=== PATIENT | male | born 1955 | race Caucasian/White ===

== ENCOUNTER 2020-03-10 15:07 | Inpatient (IN) | payer BC ==
[~2020-03-10] VITALS: Ht 170.2 cm; Wt 73.9 kg
[2020-03-10 15:14] VITALS: BP_SYST 141
[2020-03-10] MEDS ORDERED: FOLIC ACID 1 MG, THIAMINE HCL 100 MG, MAGNESIUM SULFATE 1 GM, MVI 10 ML in NACL 0.9% 1,... IV ONE ×2 (16:00→21:30)
[2020-03-10 16:10] LABS: EOSINOPHILS # (AUTO) 0.2 K/uL (0.0-0.4); HEMOGLOBIN 7.7 g/dL (14.0-18.0); LYMPHOCYTES # (AUTO) 1.6 K/uL (1.0-5.5); MONOCYTES # (AUTO) 0.7 K/uL (0.0-1.0); RED BLOOD CELL COUNT(AUTO) 2.13 MIL/uL (4.2-6.2); WHITE BLOOD COUNT (AUTO) 8.2 K/uL (4.8-10.8)
[2020-03-10 16:15] LABS: ANION GAP 8 (5-15); CALCIUM 7.7 mg/dL (8.4-11.0); CHLORIDE 103 mmol/L (98-107); GLUCOSE 111 mg/dL (70-99); POTASSIUM 3.3 mmol/L (3.5-5.1); SODIUM SERUM 138 mmol/L (136-145); UREA NITROGEN, BLOOD 11 mg/dL (8-21)
[2020-03-10] MEDS ORDERED: LIDOCAINE 1% 10 MG/ML, 20 ML MDV INJ ONE (16:15)
[2020-03-10 16:16] LABS: BASOPHILS % (AUTO) 0.6 % (0.0-2.0); EOSINOPHILS % (AUTO) 2.2 % (0.0-4.0); HEMATOCRIT 22.5 % (36-54); LYMPHOCYTES % (AUTO) 19.9 % (20.5-51.5); MEAN CORPUSCULAR HEMOGLOBIN 36 pg (27-31); MEAN CORPUSCULAR HGB CONC 34 % (32-36); MEAN CORPUSCULAR VOLUME 106 fL (79.0-98.0); NEUTROPHILS # (AUTO) 5.7 K/uL (1.8-7.7); NEUTROPHILS % (AUTO) 69.3 % (40.0-70.0); RED CELL DISTRIBUTION WIDTH 20.1 % (9.0-15.0)
[2020-03-10 16:17] LABS: INR 1.6 (0.80-1.20); PROTHROMBIN TIME 15.6 SECS (9.5-12.5)
[2020-03-10 16:18] LABS: GFR AFRICAN AMERICAN 146 mL/min (>90)
[2020-03-10 16:23] LABS: ALANINE AMINOTRANSFERASE 20 U/L (12-78); ALBUMIN 2.3 g/dL (3.4-4.8); ALCOHOL, BLOOD 312 mg/dL (<10); ASPARTATE AMINOTRANSFERASE 92 U/L (10-37); TOTAL BILIRUBIN 6.2 mg/dL (0.0-1.0)
[2020-03-10 16:27] LABS: ACETAMINOPHEN < 1 ug/mL (1-30)
[2020-03-10] MEDS ORDERED: DIPH-TET-PERTUS Vaccine 0.5 ML VIAL (ADACEL) I.M. ONE (16:45)
[2020-03-10] MEDS ORDERED: THIAMINE HCL 100 MG, MAGNESIUM SULFATE 1 GM in NS 100 ML IV ONE (17:00)
[2020-03-10] MEDS ORDERED: FOLIC ACID 1 MG, MVI 10 ML in NACL 0.9% 1,000 ML IV ONE (17:00)
[2020-03-10] MEDS ORDERED: BACITRACIN 1 GM OINT TP ONE (17:03)
[2020-03-10 17:35] LABS: BILIRUBIN,URINE NEGATIVE (NEGATIVE); BLOOD, URINE 2+ (NEGATIVE); CLARITY/URINE SL CLOUDY (CLEAR); COLOR,URINE YELLOW (YELLOW); GLUCOSE,URINE NEGATIVE (NEGATIVE); KETONES,URINE NEGATIVE (NEGATIVE); LEUKOCYTE ESTERASE ,URINE 1+ (NEGATIVE); NITRITE, URINE NEGATIVE (NEGATIVE); PROTEIN URINE NEGATIVE (NEGATIVE)
[2020-03-10 17:45] LABS: UROBILINOGEN,URINE >=8 (0.2-1.0)
[2020-03-10 17:47] LABS: BACTERIA,URINE MANY /HPF (None Seen); MUCUS,URINE None Seen /LPF (None Seen); RBC,URINE 0-3 /HPF (0-3)
[2020-03-10 17:51] LABS: BARBITURATE, URINE NEGATIVE (NEG <=200); BENZODIAZEPINE, URINE NEGATIVE (NEG <=150); CANNABINOID, URINE NEGATIVE (NEG <=50); COCAINE, URINE NEGATIVE (NEG <=150); METHAMPHETAMINES SCREEN,URINE NEGATIVE (NEG <=500); OPIATE, URINE NEGATIVE (NEG <=100); PHENCYCLIDINE SCREEN,URINE NEGATIVE (NEG <=25); URINE AMPHETAMINE NEGATIVE (NEG <=500); URINE METHADONE NEGATIVE (NEG <=200); URINE OXYCODONE SCREEN NEGATIVE (NEG <=100); URINE PROPOXYPHENE SCREEN NEGATIVE (NEG <=300)
[2020-03-10 17:52] LABS: UR TRICYCLIC ANTIDEPRESSANTS NEGATIVE (NEG <=300)
[2020-03-10] MEDS ORDERED: LORazepam 2 MG/ML VIAL IVP ONE (19:30)
[2020-03-10] MEDS ORDERED: LEVOFLOXACIN 500 MG/D5W 100 ML IV ONE (19:45)
[2020-03-10 21:00] VITALS: BP_SYST 132
[2020-03-10 21:07] VITALS: BP_SYST 117
[2020-03-10 22:00] VITALS: BP_SYST 121
[2020-03-10] MEDS: KCL 20 mEq in D5/0.45NS 1000mL 1,000 ML IV SCH (22:45)
[2020-03-10] MEDS: PANTOPRAZOLE SODIUM 40 MG/VIAL (PROTONIX) IVP SCH (22:45)
[2020-03-10] MEDS: cefTRIAXone 1 GM in D5W 50 ML IV SCH (22:46)
[2020-03-10] MEDS ORDERED: KCL 20 mEq in D5/0.45NS 1000mL 1,000 ML IV ONE (22:48)
[2020-03-10 23:00] VITALS: BP_SYST 117
[2020-03-10] MEDS ORDERED: cefTRIAXone 1 GM IVPB PREMIX 50 ML IV ONE (23:04)
[2020-03-11] VITALS (23 sets, daily range): BP systolic 113–167
[2020-03-11 05:43] LABS: BASOPHILS % (AUTO) 0.7 % (0.0-2.0); EOSINOPHILS # (AUTO) 0.1 K/uL (0.0-0.4); EOSINOPHILS % (AUTO) 1.3 % (0.0-4.0); LYMPHOCYTES % (AUTO) 14.2 % (20.5-51.5); MEAN CORPUSCULAR HEMOGLOBIN 36 pg (27-31); MEAN CORPUSCULAR HGB CONC 34 % (32-36); MEAN CORPUSCULAR VOLUME 107 fL (79.0-98.0); MONOCYTES # (AUTO) 0.5 K/uL (0.0-1.0); MONOCYTES % (AUTO) 7.4 % (1.7-9.3); NEUTROPHILS # (AUTO) 5.3 K/uL (1.8-7.7); NEUTROPHILS % (AUTO) 76.4 % (40.0-70.0); RED CELL DISTRIBUTION WIDTH 20.8 % (9.0-15.0); WHITE BLOOD COUNT (AUTO) 6.9 K/uL (4.8-10.8)
[2020-03-11 05:47] LABS: RED BLOOD CELL COUNT(AUTO) 1.88 MIL/uL (4.2-6.2)
[2020-03-11 05:49] LABS: HEMOGLOBIN 6.8 g/dL (14.0-18.0); PLATELET COUNT (AUTO) 42 K/uL (130-430)
[2020-03-11 05:52] LABS: INR 1.7 (0.80-1.20); PROTHROMBIN TIME 16.8 SECS (9.5-12.5)
[2020-03-11 05:54] LABS: CALCIUM 7.4 mg/dL (8.4-11.0); CREATININE 0.8 mg/dL (0.55-1.30); POTASSIUM 3.4 mmol/L (3.5-5.1); TOTAL BILIRUBIN 5.3 mg/dL (0.0-1.0)
[2020-03-11] MEDS: PANTOPRAZOLE SODIUM 40 MG/VIAL (PROTONIX) IVP SCH ×2 (08:16→20:47)
[2020-03-11] MEDS: ACETAMINOPHEN 325 MG TABLET PO PRN ×2 (09:33→15:35)
[2020-03-11] MEDS: chlordiazePOXIDE HCL 25 MG CAPSULE PO PRN ×2 (09:34→15:35)
[2020-03-11] MEDS: cloNIDine HCL 0.1 MG TABLET PO PRN ×2 (09:40→15:40)
[2020-03-11] MEDS: KCL 20 mEq in D5/0.45NS 1000mL 1,000 ML IV SCH (11:50)
[2020-03-11] MEDS: LORazepam 2 MG/ML VIAL IVP PRN ×2 (13:15→19:15)
[2020-03-11] MEDS ORDERED: FOLIC ACID 1 MG, MVI 10 ML in NACL 0.9% 1,000 ML IV ONE (17:00)
[2020-03-11] MEDS ORDERED: THIAMINE HCL 100 MG, MAGNESIUM SULFATE 1 GM in NS 100 ML IV ONE (17:00)
[2020-03-11] MEDS ORDERED: PHYTONADIONE 10 MG/ML AMP SUBCUT ONE (17:30)
[2020-03-11 20:18] LABS: HEMATOCRIT 25.7 % (36-54); HEMOGLOBIN 8.8 g/dL (14.0-18.0)
[2020-03-11] MEDS: cefTRIAXone 1 GM in D5W 50 ML IV SCH (20:47)
[2020-03-11 23:00] LABS: BILIRUBIN,DIRECT 2.9 mg/dL (0.0-0.3)
[2020-03-12] VITALS (23 sets, daily range): BP systolic 121–169
[2020-03-12] MEDS: KCL 20 mEq in D5/0.45NS 1000mL 1,000 ML IV SCH ×2 (01:31→14:30)
[2020-03-12 05:44] LABS: BASOPHILS % (AUTO) 0.2 % (0.0-2.0); EOSINOPHILS # (AUTO) 0.1 K/uL (0.0-0.4); EOSINOPHILS % (AUTO) 1.8 % (0.0-4.0); HEMATOCRIT 24.8 % (36-54); HEMOGLOBIN 8.6 g/dL (14.0-18.0); LYMPHOCYTES # (AUTO) 0.9 K/uL (1.0-5.5); LYMPHOCYTES % (AUTO) 11.4 % (20.5-51.5); MEAN CORPUSCULAR HEMOGLOBIN 35 pg (27-31); MEAN CORPUSCULAR HGB CONC 35 % (32-36); MEAN CORPUSCULAR VOLUME 102 fL (79.0-98.0); MONOCYTES # (AUTO) 0.5 K/uL (0.0-1.0); NEUTROPHILS # (AUTO) 6.2 K/uL (1.8-7.7); NEUTROPHILS % (AUTO) 80.6 % (40.0-70.0); RED BLOOD CELL COUNT(AUTO) 2.44 MIL/uL (4.2-6.2); RED CELL DISTRIBUTION WIDTH 21.7 % (9.0-15.0); WHITE BLOOD COUNT (AUTO) 7.7 K/uL (4.8-10.8)
[2020-03-12] MEDS: chlordiazePOXIDE HCL 25 MG CAPSULE PO PRN ×2 (05:45→21:22)
[2020-03-12 06:03] LABS: INR 1.8 (0.80-1.20); PROTHROMBIN TIME 17.8 SECS (9.5-12.5)
[2020-03-12 06:04] LABS: PLATELET COUNT (AUTO) 29 K/uL (130-430)
[2020-03-12 06:14] LABS: ALBUMIN 2.2 g/dL (3.4-4.8); CALCIUM 7.7 mg/dL (8.4-11.0); CREATININE 0.81 mg/dL (0.55-1.30); POTASSIUM 3.4 mmol/L (3.5-5.1); TOTAL BILIRUBIN 9.9 mg/dL (0.0-1.0)
[2020-03-12 07:19] LABS: TOTAL IRON BIND. CAPACITY 248 ug/dL (250-450)
[2020-03-12] MEDS ORDERED: PHYTONADIONE 10 MG/ML AMP SUBCUT ONE (08:00)
[2020-03-12] MEDS: PANTOPRAZOLE SODIUM 40 MG/VIAL (PROTONIX) IVP SCH ×2 (08:40→21:21)
[2020-03-12 13:50] LABS: PLATELET COUNT (AUTO) 33 K/uL (130-430)
[2020-03-12] MEDS: cefTRIAXone 1 GM in D5W 50 ML IV SCH (21:22)
[2020-03-12] MEDS: LORazepam 2 MG/ML VIAL IVP PRN (23:10)
[2020-03-13] VITALS (24 sets, daily range): BP systolic 114–149
[2020-03-13] MEDS: KCL 20 mEq in D5/0.45NS 1000mL 1,000 ML IV SCH ×3 (03:50→21:45)
[2020-03-13 05:23] LABS: BASOPHILS # (AUTO) 0.1 K/uL (0.0-0.2); BASOPHILS % (AUTO) 0.6 % (0.0-2.0); EOSINOPHILS # (AUTO) 0.1 K/uL (0.0-0.4); EOSINOPHILS % (AUTO) 1.3 % (0.0-4.0); HEMOGLOBIN 7.4 g/dL (14.0-18.0); LYMPHOCYTES % (AUTO) 11.4 % (20.5-51.5); MEAN CORPUSCULAR HEMOGLOBIN 35 pg (27-31); MEAN CORPUSCULAR HGB CONC 35 % (32-36); MEAN CORPUSCULAR VOLUME 101 fL (79.0-98.0); MONOCYTES # (AUTO) 0.7 K/uL (0.0-1.0); MONOCYTES % (AUTO) 7.8 % (1.7-9.3); NEUTROPHILS # (AUTO) 7.2 K/uL (1.8-7.7); NEUTROPHILS % (AUTO) 78.9 % (40.0-70.0); RED BLOOD CELL COUNT(AUTO) 2.09 MIL/uL (4.2-6.2); RED CELL DISTRIBUTION WIDTH 22.2 % (9.0-15.0); WHITE BLOOD COUNT (AUTO) 9.2 K/uL (4.8-10.8)
[2020-03-13 05:49] LABS: INR 1.7 (0.80-1.20); PROTHROMBIN TIME 17.2 SECS (9.5-12.5)
[2020-03-13 06:16] LABS: HEMATOCRIT 21.1 % (36-54)
[2020-03-13 06:17] LABS: PLATELET COUNT (AUTO) 37 K/uL (130-430)
[2020-03-13 08:06] LABS: FERRITIN 104 ng/mL (30-400); FOLATE (FOLIC ACID) >20.0 ng/mL (>3.0)
[2020-03-13] MEDS: PANTOPRAZOLE SODIUM 40 MG/VIAL (PROTONIX) IVP SCH ×2 (09:52→21:42)
[2020-03-13] MEDS: LORazepam 2 MG/ML VIAL IVP PRN (15:55)
[2020-03-13] MEDS ORDERED: VANCOMYCIN HCL 1 GM/NS PREMIX 250 ML IV ONE (19:30)
[2020-03-13] MEDS: cefTRIAXone 1 GM in D5W 50 ML IV SCH (22:00)
[2020-03-13] MEDS: chlordiazePOXIDE HCL 25 MG CAPSULE PO PRN (22:00)
[2020-03-14] VITALS (25 sets, daily range): BP systolic 123–171
[2020-03-14] MEDS: LORazepam 2 MG/ML VIAL IVP PRN ×2 (02:02→20:03)
[2020-03-14 07:02] LABS: BASOPHILS % (AUTO) 0.6 % (0.0-2.0); EOSINOPHILS # (AUTO) 0.1 K/uL (0.0-0.4); EOSINOPHILS % (AUTO) 1.6 % (0.0-4.0); LYMPHOCYTES # (AUTO) 0.9 K/uL (1.0-5.5); LYMPHOCYTES % (AUTO) 11.4 % (20.5-51.5); MEAN CORPUSCULAR HEMOGLOBIN 36 pg (27-31); MEAN CORPUSCULAR HGB CONC 35 % (32-36); MEAN CORPUSCULAR VOLUME 103 fL (79.0-98.0); MONOCYTES # (AUTO) 0.7 K/uL (0.0-1.0); NEUTROPHILS # (AUTO) 6.3 K/uL (1.8-7.7); NEUTROPHILS % (AUTO) 77.4 % (40.0-70.0); RED CELL DISTRIBUTION WIDTH 22.6 % (9.0-15.0); WHITE BLOOD COUNT (AUTO) 8.2 K/uL (4.8-10.8)
[2020-03-14 07:24] LABS: INR 1.7 (0.80-1.20); PROTHROMBIN TIME 17.2 SECS (9.5-12.5)
[2020-03-14 07:43] LABS: HEMATOCRIT 19.2 % (36-54); HEMOGLOBIN 6.7 g/dL (14.0-18.0); RED BLOOD CELL COUNT(AUTO) 1.87 MIL/uL (4.2-6.2)
[2020-03-14 07:44] LABS: PLATELET COUNT (AUTO) 32 K/uL (130-430)
[2020-03-14] MEDS: VANCOMYCIN HCL 1,000 MG in NS 250 ML IV SCH ×2 (09:01→20:06)
[2020-03-14] MEDS: PANTOPRAZOLE SODIUM 40 MG/VIAL (PROTONIX) IVP SCH ×2 (09:01→20:09)
[2020-03-14] MEDS: KCL 20 mEq in D5/0.45NS 1000mL 1,000 ML IV SCH (17:53)
[2020-03-14] MEDS: cloNIDine HCL 0.1 MG TABLET PO PRN (20:04)
[2020-03-14] MEDS: cefTRIAXone 1 GM in D5W 50 ML IV SCH (22:42)
[2020-03-15] VITALS (16 sets, daily range): BP systolic 115–159
[2020-03-15 07:21] LABS: BASOPHILS # (AUTO) 0.1 K/uL (0.0-0.2); BASOPHILS % (AUTO) 1.2 % (0.0-2.0); EOSINOPHILS # (AUTO) 0.1 K/uL (0.0-0.4); HEMATOCRIT 24.3 % (36-54); HEMOGLOBIN 8.4 g/dL (14.0-18.0); LYMPHOCYTES # (AUTO) 0.8 K/uL (1.0-5.5); LYMPHOCYTES % (AUTO) 11.4 % (20.5-51.5); MEAN CORPUSCULAR HEMOGLOBIN 34 pg (27-31); MEAN CORPUSCULAR HGB CONC 35 % (32-36); MEAN CORPUSCULAR VOLUME 98 fL (79.0-98.0); MONOCYTES # (AUTO) 0.7 K/uL (0.0-1.0); MONOCYTES % (AUTO) 10.7 % (1.7-9.3); NEUTROPHILS # (AUTO) 5.2 K/uL (1.8-7.7); NEUTROPHILS % (AUTO) 74.7 % (40.0-70.0); RED BLOOD CELL COUNT(AUTO) 2.47 MIL/uL (4.2-6.2)
[2020-03-15 07:31] LABS: INR 1.7 (0.80-1.20); PROTHROMBIN TIME 16.8 SECS (9.5-12.5)
[2020-03-15 07:34] LABS: ALBUMIN 2.2 g/dL (3.4-4.8); BILIRUBIN,DIRECT 4.2 mg/dL (0.0-0.3); CALCIUM 7.8 mg/dL (8.4-11.0); CREATININE 0.82 mg/dL (0.55-1.30); POTASSIUM 3.4 mmol/L (3.5-5.1); TOTAL BILIRUBIN 9.3 mg/dL (0.0-1.0)
[2020-03-15] MEDS: VANCOMYCIN HCL 1,000 MG in NS 250 ML IV SCH ×2 (08:19→20:32)
[2020-03-15] MEDS: PANTOPRAZOLE SODIUM 40 MG/VIAL (PROTONIX) IVP SCH ×2 (08:20→20:32)
[2020-03-15 09:01] LABS: PLATELET COUNT (AUTO) 48 K/uL (130-430)
[2020-03-15] MEDS ORDERED: POTASSIUM CHLORIDE 20 MEQ TAB.PRT.SR PO ONE (12:30)
[2020-03-15] MEDS: KCL 20 mEq in D5/0.45NS 1000mL 1,000 ML IV SCH ×2 (12:32→22:24)
[2020-03-15] MEDS: LORazepam 2 MG/ML VIAL IVP PRN ×2 (16:50→22:24)
[2020-03-15] MEDS: ACETAMINOPHEN 325 MG TABLET PO PRN (20:35)
[2020-03-15] MEDS: cefTRIAXone 1 GM in D5W 50 ML IV SCH (22:23)
[2020-03-16 01:38] VITALS: BP_SYST 154
[2020-03-16] MEDS: LORazepam 2 MG/ML VIAL IVP PRN ×4 (02:59→20:52)
[2020-03-16 07:18] LABS: BASOPHILS # (AUTO) 0.1 K/uL (0.0-0.2); BASOPHILS % (AUTO) 0.9 % (0.0-2.0); EOSINOPHILS # (AUTO) 0.2 K/uL (0.0-0.4); HEMATOCRIT 24.7 % (36-54); HEMOGLOBIN 8.6 g/dL (14.0-18.0); LYMPHOCYTES # (AUTO) 0.9 K/uL (1.0-5.5); LYMPHOCYTES % (AUTO) 12.5 % (20.5-51.5); MEAN CORPUSCULAR HEMOGLOBIN 35 pg (27-31); MEAN CORPUSCULAR HGB CONC 35 % (32-36); MEAN CORPUSCULAR VOLUME 99 fL (79.0-98.0); MONOCYTES # (AUTO) 0.9 K/uL (0.0-1.0); MONOCYTES % (AUTO) 11.4 % (1.7-9.3); NEUTROPHILS # (AUTO) 5.5 K/uL (1.8-7.7); NEUTROPHILS % (AUTO) 73.2 % (40.0-70.0); PLATELET COUNT (AUTO) 50 K/uL (130-430); RED BLOOD CELL COUNT(AUTO) 2.49 MIL/uL (4.2-6.2); RED CELL DISTRIBUTION WIDTH 21.8 % (9.0-15.0); WHITE BLOOD COUNT (AUTO) 7.5 K/uL (4.8-10.8)
[2020-03-16 07:42] LABS: INR 1.7 (0.80-1.20); PROTHROMBIN TIME 17.2 SECS (9.5-12.5)
[2020-03-16 07:56] LABS: ALBUMIN 2.4 g/dL (3.4-4.8); CALCIUM 8.2 mg/dL (8.4-11.0); CREATININE 0.75 mg/dL (0.55-1.30); POTASSIUM 3.6 mmol/L (3.5-5.1); TOTAL BILIRUBIN 11.5 mg/dL (0.0-1.0)
[2020-03-16 08:00] VITALS: BP_SYST 126
[2020-03-16] MEDS: PANTOPRAZOLE SODIUM 40 MG/VIAL (PROTONIX) IVP SCH ×2 (09:42→20:50)
[2020-03-16] MEDS: VANCOMYCIN HCL 1,000 MG in NS 250 ML IV SCH (09:43)
[2020-03-16 12:23] VITALS: BP_SYST 134
[2020-03-16 16:56] VITALS: BP_SYST 140
[2020-03-16] MEDS: KCL 20 mEq in D5/0.45NS 1000mL 1,000 ML IV SCH ×2 (17:40→18:48)
[2020-03-16 19:45] VITALS: BP_SYST 136
[2020-03-16] MEDS: VANCOMYCIN HCL 1,250 MG in NS 250 ML IV SCH (20:51)
[2020-03-16] MEDS: cefTRIAXone 1 GM in D5W 50 ML IV SCH (21:03)
[2020-03-17] VITALS: BP_SYST 124
[2020-03-17] MEDS: KCL 20 mEq in D5/0.45NS 1000mL 1,000 ML IV SCH ×2 (01:38→14:30)
[2020-03-17 06:18] LABS: EOSINOPHILS # (AUTO) 0.2 K/uL (0.0-0.4); HEMATOCRIT 23.5 % (36-54); HEMOGLOBIN 8.1 g/dL (14.0-18.0); MEAN CORPUSCULAR HEMOGLOBIN 34 pg (27-31); MEAN CORPUSCULAR HGB CONC 35 % (32-36); MEAN CORPUSCULAR VOLUME 100 fL (79.0-98.0); RED BLOOD CELL COUNT(AUTO) 2.37 MIL/uL (4.2-6.2); RED CELL DISTRIBUTION WIDTH 21.8 % (9.0-15.0); WHITE BLOOD COUNT (AUTO) 6.8 K/uL (4.8-10.8)
[2020-03-17 07:52] VITALS: BP_SYST 143; BP_SYST 97
[2020-03-17 08:28] LABS: BASOPHILS % (AUTO) 0.7 % (0.0-2.0); EOSINOPHILS % (AUTO) 2.9 % (0.0-4.0); LYMPHOCYTES # (AUTO) 0.6 K/uL (1.0-5.5); LYMPHOCYTES % (AUTO) 8.4 % (20.5-51.5); MONOCYTES # (AUTO) 0.8 K/uL (0.0-1.0); MONOCYTES % (AUTO) 11.4 % (1.7-9.3); NEUTROPHILS # (AUTO) 5.2 K/uL (1.8-7.7); NEUTROPHILS % (AUTO) 76.6 % (40.0-70.0); PLATELET COUNT (AUTO) 49 K/uL (130-430)
[2020-03-17] MEDS: PANTOPRAZOLE SODIUM 40 MG/VIAL (PROTONIX) IVP SCH ×2 (08:54→21:27)
[2020-03-17] MEDS: VANCOMYCIN HCL 1,250 MG in NS 250 ML IV SCH ×2 (08:55→21:27)
[2020-03-17 11:50] VITALS: BP_SYST 130
[2020-03-17 16:12] VITALS: BP_SYST 145
[2020-03-17] MEDS: cefTRIAXone 1 GM in D5W 50 ML IV SCH (16:21)
[2020-03-17 20:00] VITALS: BP_SYST 132
[2020-03-18 01:56] VITALS: BP_SYST 120
[2020-03-18] MEDS: KCL 20 mEq in D5/0.45NS 1000mL 1,000 ML IV SCH ×2 (06:16→19:30)
[2020-03-18 06:48] LABS: BASOPHILS % (AUTO) 0.7 % (0.0-2.0); EOSINOPHILS # (AUTO) 0.2 K/uL (0.0-0.4); EOSINOPHILS % (AUTO) 3.2 % (0.0-4.0); HEMATOCRIT 23.4 % (36-54); HEMOGLOBIN 8.2 g/dL (14.0-18.0); LYMPHOCYTES # (AUTO) 0.8 K/uL (1.0-5.5); LYMPHOCYTES % (AUTO) 13.3 % (20.5-51.5); MEAN CORPUSCULAR HEMOGLOBIN 35 pg (27-31); MEAN CORPUSCULAR HGB CONC 35 % (32-36); MEAN CORPUSCULAR VOLUME 99 fL (79.0-98.0); MONOCYTES # (AUTO) 0.7 K/uL (0.0-1.0); MONOCYTES % (AUTO) 11.2 % (1.7-9.3); NEUTROPHILS # (AUTO) 4.5 K/uL (1.8-7.7); NEUTROPHILS % (AUTO) 71.6 % (40.0-70.0); PLATELET COUNT (AUTO) 55 K/uL (130-430); RED BLOOD CELL COUNT(AUTO) 2.35 MIL/uL (4.2-6.2); WHITE BLOOD COUNT (AUTO) 6.3 K/uL (4.8-10.8)
[2020-03-18 07:18] LABS: ALBUMIN 2.1 g/dL (3.4-4.8); CALCIUM 7.9 mg/dL (8.4-11.0); CREATININE 0.73 mg/dL (0.55-1.30); POTASSIUM 3.4 mmol/L (3.5-5.1); TOTAL BILIRUBIN 10.2 mg/dL (0.0-1.0)
[2020-03-18 08:00] VITALS: BP_SYST 150
[2020-03-18] MEDS: VANCOMYCIN HCL 1,250 MG in NS 250 ML IV SCH ×2 (08:38→20:54)
[2020-03-18] MEDS: PANTOPRAZOLE SODIUM 40 MG/VIAL (PROTONIX) IVP SCH ×2 (08:39→20:55)
[2020-03-18] MEDS ORDERED: POTASSIUM CHLORIDE 20 MEQ TAB.PRT.SR PO ONE (10:00)
[2020-03-18 12:14] VITALS: BP_SYST 140
[2020-03-18] MEDS: cefTRIAXone 1 GM in D5W 50 ML IV SCH (15:37)
[2020-03-18 16:20] VITALS: BP_SYST 144
[2020-03-18 19:00] VITALS: BP_SYST 161
[2020-03-18 20:00] VITALS: BP_SYST 161
[2020-03-18] MEDS: cloNIDine HCL 0.1 MG TABLET PO PRN (20:55)
[2020-03-19 00:34] VITALS: BP_SYST 117
[2020-03-19] MEDS: KCL 20 mEq in D5/0.45NS 1000mL 1,000 ML IV SCH ×2 (05:19→21:07)
[2020-03-19 06:50] LABS: BASOPHILS # (AUTO) 0.1 K/uL (0.0-0.2); BASOPHILS % (AUTO) 0.9 % (0.0-2.0); EOSINOPHILS # (AUTO) 0.2 K/uL (0.0-0.4); HEMATOCRIT 24.6 % (36-54); HEMOGLOBIN 8.5 g/dL (14.0-18.0); LYMPHOCYTES # (AUTO) 0.9 K/uL (1.0-5.5); MEAN CORPUSCULAR HEMOGLOBIN 35 pg (27-31); MEAN CORPUSCULAR HGB CONC 35 % (32-36); MEAN CORPUSCULAR VOLUME 100 fL (79.0-98.0); MONOCYTES # (AUTO) 0.7 K/uL (0.0-1.0); MONOCYTES % (AUTO) 11.1 % (1.7-9.3); NEUTROPHILS # (AUTO) 4.4 K/uL (1.8-7.7); RED BLOOD CELL COUNT(AUTO) 2.47 MIL/uL (4.2-6.2); RED CELL DISTRIBUTION WIDTH 21.9 % (9.0-15.0); WHITE BLOOD COUNT (AUTO) 6.2 K/uL (4.8-10.8)
[2020-03-19 07:28] LABS: ALBUMIN 2.2 g/dL (3.4-4.8); POTASSIUM 3.3 mmol/L (3.5-5.1)
[2020-03-19 07:55] VITALS: BP_SYST 156
[2020-03-19] MEDS: PANTOPRAZOLE SODIUM 40 MG/VIAL (PROTONIX) IVP SCH ×2 (09:12→21:02)
[2020-03-19] MEDS: VANCOMYCIN HCL 1,250 MG in NS 250 ML IV SCH ×2 (09:12→21:02)
[2020-03-19 09:31] LABS: CREATININE 0.44 mg/dL (0.55-1.30); TOTAL BILIRUBIN 10.2 mg/dL (0.0-1.0)
[2020-03-19 10:26] LABS: PLATELET COUNT (AUTO) 48 K/uL (130-430)
[2020-03-19] MEDS ORDERED: POTASSIUM CHLORIDE 20 MEQ TAB.PRT.SR PO ONE (12:00)
[2020-03-19 13:03] VITALS: BP_SYST 135
[2020-03-19 16:33] VITALS: BP_SYST 142
[2020-03-19] MEDS: cefTRIAXone 1 GM in D5W 50 ML IV SCH (17:53)
[2020-03-19 20:00] VITALS: BP_SYST 142
[2020-03-19] MEDS: LORazepam 2 MG/ML VIAL IVP PRN (23:11)
[2020-03-20] VITALS: BP_SYST 157
[2020-03-20 06:55] LABS: BASOPHILS # (AUTO) 0.1 K/uL (0.0-0.2); BASOPHILS % (AUTO) 0.9 % (0.0-2.0); EOSINOPHILS # (AUTO) 0.2 K/uL (0.0-0.4); EOSINOPHILS % (AUTO) 2.6 % (0.0-4.0); HEMATOCRIT 26.4 % (36-54); HEMOGLOBIN 9.2 g/dL (14.0-18.0); LYMPHOCYTES # (AUTO) 0.9 K/uL (1.0-5.5); LYMPHOCYTES % (AUTO) 12.4 % (20.5-51.5); MEAN CORPUSCULAR HEMOGLOBIN 35 pg (27-31); MEAN CORPUSCULAR HGB CONC 35 % (32-36); MEAN CORPUSCULAR VOLUME 100 fL (79.0-98.0); MONOCYTES # (AUTO) 0.7 K/uL (0.0-1.0); MONOCYTES % (AUTO) 9.9 % (1.7-9.3); NEUTROPHILS # (AUTO) 5.4 K/uL (1.8-7.7); NEUTROPHILS % (AUTO) 74.2 % (40.0-70.0); PLATELET COUNT (AUTO) 51 K/uL (130-430); RED BLOOD CELL COUNT(AUTO) 2.63 MIL/uL (4.2-6.2); RED CELL DISTRIBUTION WIDTH 22.4 % (9.0-15.0); WHITE BLOOD COUNT (AUTO) 7.3 K/uL (4.8-10.8)
[2020-03-20 07:48] VITALS: BP_SYST 151
[2020-03-20] MEDS: LORazepam 2 MG/ML VIAL IVP PRN (07:56)
[2020-03-20] MEDS: PANTOPRAZOLE SODIUM 40 MG/VIAL (PROTONIX) IVP SCH ×2 (08:17→20:02)
[2020-03-20] MEDS: VANCOMYCIN HCL 1,250 MG in NS 250 ML IV SCH ×2 (08:18→20:02)
[2020-03-20 12:05] VITALS: BP_SYST 134
[2020-03-20] MEDS: cefTRIAXone 1 GM in D5W 50 ML IV SCH (16:12)
[2020-03-20] MEDS: KCL 20 mEq in D5/0.45NS 1000mL 1,000 ML IV SCH (16:16)
[2020-03-20 17:07] VITALS: BP_SYST 130
[2020-03-20] MEDS ORDERED: POTASSIUM CHLORIDE 20 MEQ/PKT PACKET PO ONE (19:00)
[2020-03-20] MEDS: MEGESTROL ACETATE 400 MG/10 ML UDC PO SCH (20:07)
[2020-03-20 20:12] VITALS: BP_SYST 177
[2020-03-20] MEDS: cloNIDine HCL 0.1 MG TABLET PO PRN (20:18)
[2020-03-21] VITALS: BP_SYST 117
[2020-03-21] MEDS: KCL 20 mEq in D5/0.45NS 1000mL 1,000 ML IV SCH ×2 (06:49→17:43)
[2020-03-21 07:05] LABS: BASOPHILS # (AUTO) 0.1 K/uL (0.0-0.2); BASOPHILS % (AUTO) 1.2 % (0.0-2.0); EOSINOPHILS # (AUTO) 0.2 K/uL (0.0-0.4); EOSINOPHILS % (AUTO) 3.5 % (0.0-4.0); HEMATOCRIT 23.6 % (36-54); HEMOGLOBIN 8.3 g/dL (14.0-18.0); LYMPHOCYTES # (AUTO) 0.7 K/uL (1.0-5.5); LYMPHOCYTES % (AUTO) 11.1 % (20.5-51.5); MEAN CORPUSCULAR HEMOGLOBIN 35 pg (27-31); MEAN CORPUSCULAR HGB CONC 35 % (32-36); MEAN CORPUSCULAR VOLUME 101 fL (79.0-98.0); MONOCYTES # (AUTO) 0.6 K/uL (0.0-1.0); MONOCYTES % (AUTO) 9.6 % (1.7-9.3); NEUTROPHILS # (AUTO) 4.7 K/uL (1.8-7.7); NEUTROPHILS % (AUTO) 74.6 % (40.0-70.0); PLATELET COUNT (AUTO) 54 K/uL (130-430); RED BLOOD CELL COUNT(AUTO) 2.35 MIL/uL (4.2-6.2); RED CELL DISTRIBUTION WIDTH 23.3 % (9.0-15.0); WHITE BLOOD COUNT (AUTO) 6.4 K/uL (4.8-10.8)
[2020-03-21 09:51] VITALS: BP_SYST 115
[2020-03-21] MEDS: VANCOMYCIN HCL 1,250 MG in NS 250 ML IV SCH ×2 (09:59→21:03)
[2020-03-21] MEDS: PANTOPRAZOLE SODIUM 40 MG/VIAL (PROTONIX) IVP SCH ×2 (10:00→21:03)
[2020-03-21] MEDS: MEGESTROL ACETATE 400 MG/10 ML UDC PO SCH ×2 (10:01→21:03)
[2020-03-21] MEDS: QUEtiapine FUMARATE 25 MG TABLET PO SCH ×2 (10:02→21:03)
[2020-03-21 12:53] VITALS: BP_SYST 105
[2020-03-21] MEDS: cefTRIAXone 1 GM in D5W 50 ML IV SCH (16:19)
[2020-03-21 16:56] VITALS: BP_SYST 118
[2020-03-21 20:00] VITALS: BP_SYST 112
[2020-03-22] VITALS: BP_SYST 115
[2020-03-22] MEDS: KCL 20 mEq in D5/0.45NS 1000mL 1,000 ML IV SCH (03:29)
[2020-03-22 06:47] LABS: BASOPHILS # (AUTO) 0.1 K/uL (0.0-0.2); BASOPHILS % (AUTO) 0.9 % (0.0-2.0); EOSINOPHILS # (AUTO) 0.2 K/uL (0.0-0.4); EOSINOPHILS % (AUTO) 2.6 % (0.0-4.0); HEMOGLOBIN 7.7 g/dL (14.0-18.0); LYMPHOCYTES # (AUTO) 0.9 K/uL (1.0-5.5); LYMPHOCYTES % (AUTO) 14.4 % (20.5-51.5); MEAN CORPUSCULAR HEMOGLOBIN 36 pg (27-31); MEAN CORPUSCULAR HGB CONC 35 % (32-36); MEAN CORPUSCULAR VOLUME 101 fL (79.0-98.0); MONOCYTES # (AUTO) 0.6 K/uL (0.0-1.0); MONOCYTES % (AUTO) 9.3 % (1.7-9.3); NEUTROPHILS # (AUTO) 4.5 K/uL (1.8-7.7); NEUTROPHILS % (AUTO) 72.8 % (40.0-70.0); PLATELET COUNT (AUTO) 50 K/uL (130-430); RED BLOOD CELL COUNT(AUTO) 2.16 MIL/uL (4.2-6.2); RED CELL DISTRIBUTION WIDTH 24.2 % (9.0-15.0); WHITE BLOOD COUNT (AUTO) 6.1 K/uL (4.8-10.8)
[2020-03-22 07:00] LABS: HEMATOCRIT 21.9 % (36-54)
[2020-03-22 07:50] VITALS: BP_SYST 110
[2020-03-22] MEDS: PANTOPRAZOLE SODIUM 40 MG/VIAL (PROTONIX) IVP SCH (08:11)
[2020-03-22] MEDS: MEGESTROL ACETATE 400 MG/10 ML UDC PO SCH (08:11)
[2020-03-22] MEDS: VANCOMYCIN HCL 1,250 MG in NS 250 ML IV SCH (08:12)
[2020-03-22] MEDS: QUEtiapine FUMARATE 25 MG TABLET PO SCH (08:16)
[2020-03-22 12:30] VITALS: BP_SYST 104
[2020-03-22 13:05] VITALS: BP_SYST 110
[2020-03-22] MEDS: cefTRIAXone 1 GM in D5W 50 ML IV SCH (15:47)
[2020-03-22 17:10] VITALS: BP_SYST 111
== END 2020-03-22 16:20 | DRG 57 ==
LOC: SED 15:07 → SIC 19:46 → STU 03-15 14:25 → SMU 03-19 21:16
PROVIDERS: ADMIT Family Medicine; ATTEND Family Medicine
PROC: 30233K1 Transfusion of Nonautologous Frozen Plasma into Peripheral Vein, Percutaneous Approach (ICD-10-PCS; principal; 2020-03-10)
PROC: 0HQ1XZZ Repair Face Skin, External Approach (ICD-10-PCS; 2020-03-10)
PROC: 30233N1 Transfusion of Nonautologous Red Blood Cells into Peripheral Vein, Percutaneous Approach (ICD-10-PCS; 2020-03-11)
PROC: 30233R1 Transfusion of Nonautologous Platelets into Peripheral Vein, Percutaneous Approach (ICD-10-PCS; 2020-03-12)
DX: S06.0X9A Concussion with loss of consciousness of unspecified duration, initial encounter (principal); F10.229 Alcohol dependence with intoxication, unspecified; S01.81XA Laceration without foreign body of other part of head, initial encounter; E43 Unspecified severe protein-calorie malnutrition; D53.9 Nutritional anemia, unspecified; K70.30 Alcoholic cirrhosis of liver without ascites; Z20.828 Contact with and (suspected) exposure to other viral communicable diseases; F17.200 Nicotine dependence, unspecified, uncomplicated; D61.818 Other pancytopenia; S70.12XA Contusion of left thigh, initial encounter; D68.9 Coagulation defect, unspecified; E11.9 Type 2 diabetes mellitus without complications; N39.0 Urinary tract infection, site not specified; I10 Essential (primary) hypertension; F29 Unspecified psychosis not due to a substance or known physiological condition; S01.112A Laceration without foreign body of left eyelid and periocular area, initial encounter; K72.90 Hepatic failure, unspecified without coma; K70.10 Alcoholic hepatitis without ascites; W18.39XA Other fall on same level, initial encounter; Y93.89 Activity, other specified; Y99.8 Other external cause status; Y92.009 Unspecified place in unspecified non-institutional (private) residence as the place of occurrence of the external cause; Z68.25 Body mass index [BMI] 25.0-25.9, adult
CPT/HCPCS: 36415; 36430; 70450-TC; 70486-TC; 71045; 76700-TC; 80048; 80053; 80076; 80202-TC; 80307; 81000-TC; 82140-TC; 82247-TC; 82248-TC; 82272; 82607; 82728; 82746; 82962; 83540-TC; 83550-TC; 83605; 83735-TC; 84484; 85018-TC; 85025; 85384-TC; 85610-TC; 85730-TC; 86886; 86900; 86901; 86920; 87040-TC; 87081; 87086; 87186-TC; 90715; 93005; 96365; 96366; 96375; 97110-GP; 97530-GP; 99285; C9113; G0378; G0480; G0481; G0482; J0696; J1956; J2001; J2060; J3370; J3411; J3430; J3475; J3490; J7030; J7050; J7060; P9021; P9034; P9059; U0003-CS

== ENCOUNTER 2020-04-25 16:24 | Inpatient (IN) | payer BC, SELFPAY ==
[~2020-04-25] VITALS: Ht 167.6 cm; Wt 61.7 kg
[2020-04-25 16:35] VITALS: BP_SYST 106
[2020-04-25 17:31] LABS: BASOPHILS % (AUTO) 0.2 % (0.0-2.0); HEMATOCRIT 30.8 % (36-54); HEMOGLOBIN 10.7 g/dL (14.0-18.0); LYMPHOCYTES # (AUTO) 0.6 K/uL (1.0-5.5); LYMPHOCYTES % (AUTO) 8.2 % (20.5-51.5); MEAN CORPUSCULAR HEMOGLOBIN 43 pg (27-31); MEAN CORPUSCULAR HGB CONC 35 % (32-36); MEAN CORPUSCULAR VOLUME 125 fL (79.0-98.0); MONOCYTES # (AUTO) 0.2 K/uL (0.0-1.0); MONOCYTES % (AUTO) 2.3 % (1.7-9.3); NEUTROPHILS # (AUTO) 6.6 K/uL (1.8-7.7); NEUTROPHILS % (AUTO) 89.3 % (40.0-70.0); PLATELET COUNT (AUTO) 85 K/uL (130-430); RED BLOOD CELL COUNT(AUTO) 2.47 MIL/uL (4.2-6.2); RED CELL DISTRIBUTION WIDTH 16.4 % (9.0-15.0); WHITE BLOOD COUNT (AUTO) 7.4 K/uL (4.8-10.8)
[2020-04-25 17:53] LABS: CALCIUM 9.4 mg/dL (8.4-11.0); CREATININE 2.53 mg/dL (0.55-1.30); POTASSIUM 4.5 mmol/L (3.5-5.1)
[2020-04-25 18:11] LABS: ALBUMIN 2.5 g/dL (3.4-4.8)
[2020-04-25 18:18] LABS: TOTAL BILIRUBIN 18.5 mg/dL (0.0-1.0)
[2020-04-25 18:21] LABS: C-REACTIVE PROTEIN QUANT 15.2 mg/dL (0-0.5)
[2020-04-25 18:54] LABS: INR 2.2 (0.80-1.20); PROTHROMBIN TIME 21.6 SECS (9.5-12.5)
[2020-04-25] MEDS ORDERED: ENOXAPARIN SODIUM 80 MG/0.8 ML SYRINGE SUBCUT ONE (19:15)
[2020-04-25] MEDS ORDERED: D5/0.45 NS 1,000 ML IV SCH (19:30)
[2020-04-25] MEDS ORDERED: ENOXAPARIN SODIUM 80 MG/0.8 ML SYRINGE ONE (20:00)
[2020-04-25] MEDS ORDERED: NOREPINEPHRINE BITARTRATE 4 MG in NS 246 ML IV PRN ×2 (20:15→20:30)
[2020-04-25 20:33] LABS: COLOR,URINE AMBER (YELLOW)
[2020-04-25 20:34] LABS: CLARITY/URINE CLOUDY (CLEAR); GLUCOSE,URINE NEGATIVE (NEGATIVE); KETONES,URINE TRACE (NEGATIVE); PROTEIN URINE 1+ (NEGATIVE)
[2020-04-25 20:35] LABS: BILIRUBIN,URINE 2+ (NEGATIVE); BLOOD, URINE 3+ (NEGATIVE); LEUKOCYTE ESTERASE ,URINE NEGATIVE (NEGATIVE); NITRITE, URINE POSITIVE (NEGATIVE)
[2020-04-25] MEDS ORDERED: NOREPINEPHRINE 4 MG/4 ML VIAL IV ONE (20:36)
[2020-04-25 20:57] LABS: FIBRINOGEN 308 mg/dL (200-400)
[2020-04-25 21:00] VITALS: BP_SYST 102
[2020-04-25 21:06] LABS: BACTERIA,URINE MODERATE /HPF (None Seen); WBC,URINE NONE SEEN /HPF (0-3)
[2020-04-25 21:08] LABS: CALCIUM PHOSPHATE CRYSTALS,UR None Seen /HPF (None Seen); TRICHOMONAS,URINE None Seen /HPF (None Seen)
[2020-04-25 21:35] VITALS: BP_SYST 88
[2020-04-25] MEDS ORDERED: ONDANSETRON HCL 4 MG/2 ML VIAL IVP PRN (21:45)
[2020-04-25] MEDS ORDERED: ACETAMINOPHEN 650 MG SUPP.RECT RC PRN (21:45)
[2020-04-25 22:00] VITALS: BP_SYST 87
[2020-04-25] MEDS ORDERED: PIPERACILLIN/TAZOBACTAM 3.375 GM/VIAL (ZOSYN) IV ONE (22:16)
[2020-04-25] MEDS ORDERED: KCL 20 mEq in D5NS 1000 mL 1,000 ML IV ONE (22:17)
[2020-04-25] MEDS: KCL 20 mEq in D5NS 1000 mL 1,000 ML IV SCH (22:23)
[2020-04-25] MEDS: PIPERACILLIN/TAZO 3.375/DEX-IS 50 ML IV SCH (22:25)
[2020-04-25] MEDS: PANTOPRAZOLE SODIUM 40 MG/VIAL (PROTONIX) IVP SCH (22:25)
[2020-04-25] MEDS ORDERED: PANTOPRAZOLE SODIUM 40 MG/VIAL (PROTONIX) ONE (22:45)
[2020-04-25 23:00] VITALS: BP_SYST 101
[2020-04-26] VITALS (10 sets, daily range): BP systolic 82–158
[2020-04-26] MEDS ORDERED: FLU VACC QS2020-21 (6 mos & up) 0.5 ML/SYRINGE I.M. PRN
[2020-04-26] MEDS: NOREPINEPHRINE BITARTRATE 4 MG in NS 246 ML IV PRN ×2 (00:02→01:10)
[2020-04-26] MEDS ORDERED: NOREPINEPHRINE 4 MG/4 ML VIAL IV ONE ×5 (00:14→05:32)
[2020-04-26] MEDS: NOREPINEPHRINE BITARTRATE 8 MG in NS 246 ML IV PRN ×4 (02:49→07:11)
[2020-04-26] MEDS ORDERED: SODIUM BICARBONATE 8.4% JECT 100 MEQ in 0.45% NACL 1,000 ML IVP SCH (04:00)
[2020-04-26] MEDS ORDERED: SODIUM BICARBONATE 8.4% JECT 50 MEQ/50 ML SYRINGE IVP ONE ×3 (04:00→10:37)
[2020-04-26] MEDS ORDERED: SODIUM BICARBONATE 8.4% JECT 50 MEQ/50 ML SYRINGE ONE ×2 (04:01)
[2020-04-26] MEDS ORDERED: KCL 20 mEq in D5NS 1000 mL 1,000 ML IV ONE (04:28)
[2020-04-26] MEDS: KCL 20 mEq in D5NS 1000 mL 1,000 ML IV SCH (05:31)
[2020-04-26] MEDS: PIPERACILLIN/TAZO 3.375/DEX-IS 50 ML IV SCH ×3 (05:43→12:00)
[2020-04-26] MEDS ORDERED: LORazepam 2 MG/ML VIAL IVP PRN (05:45)
[2020-04-26] MEDS ORDERED: NALOXONE HCL 0.4 MG/ML AMP (NARCAN) IVP PRN (05:45)
[2020-04-26] MEDS ORDERED: MORPHINE 2 MG/ML INJ. SYRINGE IVP PRN (05:45)
[2020-04-26] MEDS ORDERED: PROPOFOL DRIP 100 ML IV PRN (05:45)
[2020-04-26] MEDS ORDERED: ATROPINE SULFATE 1 MG/10 ML SYRINGE IVP ONE (06:13)
[2020-04-26] MEDS ORDERED: ALBUMIN HUMAN 25% 100 ML IV PRN (08:45)
[2020-04-26] MEDS ORDERED: ALBUMIN HUMAN 25% 100 ML IV SCH (09:00)
[2020-04-26] MEDS: PANTOPRAZOLE SODIUM 40 MG/VIAL (PROTONIX) IVP SCH (09:00)
[2020-04-26] MEDS ORDERED: EPINEPHrine JECT 0.1 MG/ML SYR IVP ONE (10:37)
[2020-04-26] MEDS ORDERED: DEXTROSE 50% JECT 50 ML DISP.SYRIN IVP ONE (10:37)
[2020-04-26] MEDS ORDERED: AMIKACIN SULFATE 500 MG in D5W 100 ML IV SCH (11:00)
== END 2020-04-26 10:38 | disposition expired | DRG 720 ==
LOC: SED 16:24 → SIC 19:24
PROVIDERS: ADMIT Family Medicine; ATTEND Family Medicine
PROC: 5A09357 Assistance with Respiratory Ventilation, Less than 24 Consecutive Hours, Continuous Positive Airway Pressure (ICD-10-PCS; principal; 2020-04-26)
PROC: 5A1935Z Respiratory Ventilation, Less than 24 Consecutive Hours (ICD-10-PCS; 2020-04-26)
PROC: 0BH17EZ Insertion of Endotracheal Airway into Trachea, Via Natural or Artificial Opening (ICD-10-PCS; 2020-04-26)
DX: A41.9 Sepsis, unspecified organism (principal); R65.21 Severe sepsis with septic shock; G93.41 Metabolic encephalopathy; N17.9 Acute kidney failure, unspecified; K72.00 Acute and subacute hepatic failure without coma; K72.10 Chronic hepatic failure without coma; E86.0 Dehydration; Z66 Do not resuscitate; K70.30 Alcoholic cirrhosis of liver without ascites; I10 Essential (primary) hypertension; E11.9 Type 2 diabetes mellitus without complications; Z20.828 Contact with and (suspected) exposure to other viral communicable diseases; I46.9 Cardiac arrest, cause unspecified
CPT/HCPCS: 36415; 36600; 71045; 80053; 81000-TC; 82140-TC; 82550-TC; 82728; 82803-TC; 82962; 83605; 83615-TC; 83880; 84484; 85025; 85379; 85384-TC; 85610-TC; 85730-TC; 86140; 86886; 86900; 86901; 87040-TC; 87081; 87086; 94002; 96365; 96372; 99291; C9113; J0171; J0278; J0461; J1650; J2543; J7030; J7050; J7060